=== PATIENT | male | born 1955 | race American Indian/Alaskan Native ===

== ENCOUNTER 2019-03-09 02:59 | Emergency (ER) | payer SELFPAY ==
[2019-03-09 03:08] VITALS: BP 130/86
--- NOTE | 2019-03-09 04:27 | Emergency Department Report ---
ED Headache HPI - General Chief Complaint: High BP Stated Complaint: LEFT SIDE HEADACHE AND LEFT EYE Time Seen by Provider: 03/09/19 04:22 Source: patient - History of Present Illness Initial Comments: This is a 63-year-old male. This patient has a history of hypertension and is currently on losartan 50 mg daily and potassium 10 mEq daily. Patient comes in complaining of a headache that he's had all day. Patient denies any nausea vomiting. Patient reportedly blurred vision in the left eye this morning but that has resolved. Patient denies any URI symptoms. Patient is followed by Dr. Karri Foy at [place]. His last took something for pain approximately 11:30 Monday night. Patient currently has no headache at this time. Timing/Duration: 24 hours Quality: mild Head Injury Location: frontal (time left eye) Recent Head Trauma: no recent headache/trauma Modifying Factors: worse with: cold therapy, exposure to light, immobilization, medication, movement, rest, other Associated Symptoms: denies: denies symptoms, confusion, fatigue, facial pain, fever/chills, flushing, loss of consciousness, nausea/vomiting, nasal congestion, nasal drainage, numbness in legs/feet, rash, seizures, sinus infection, stiff neck, vision changes, weakness, other Allergies/Adverse Reactions: Allergies No Known Allergies Allergy (Unverified 03/09/19 03:05) Home Medications: Ambulatory Orders Ibuprofen [Motrin 800 MG tab] 800 mg PO Q8HR PRN #30 tablet 03/09/19 ED Review of Systems ROS: Stated complaint: LEFT SIDE HEADACHE AND LEFT EYE Other details as noted in HPI Comment: All other systems reviewed and negative Constitutional: denies: chills, fever Eyes: denies: eye pain, eye discharge, vision change ENT: denies: ear pain, throat pain Respiratory: denies: cough, shortness of breath, wheezing Cardiovascular: denies: chest pain, palpitations Endocrine: no symptoms reported Gastrointestinal: denies: abdominal pain, nausea, diarrhea Genitourinary: denies: urgency, dysuria Musculoskeletal: denies: back pain, joint swelling, arthralgia Skin: denies: rash, lesions Neurological: headache (headache at this time). denies: weakness, paresthesias Psychiatric: denies: anxiety, depression Hematological/Lymphatic: denies: easy bleeding, easy bruising ED Past Medical Hx - Past Medical History Previous Medical History?: Yes Hx Hypertension: Yes - Surgical History Past Surgical History?: No - Social History Smoking Status: Never Smoker Substance Use Type: None - Medications Home Medications: Home Medications Medication Instructions Recorded Confirmed Last Taken Type Ibuprofen [Motrin 800 MG tab] 800 mg PO Q8HR PRN #30 tablet 03/09/19 Unknown Rx ED Physical Exam - General Limitations: No Limitations General appearance: alert, in no apparent distress - Head Head exam: Present: atraumatic, normocephalic - Eye Eye exam: Present: normal appearance, PERRL, EOMI - ENT ENT exam: Present: mucous membranes moist - Neck Neck exam: Present: full ROM - Expanded Neurological Exam Expanded Patient oriented to: Present: person, place, time Cranial nerves: EOM's Intact: Normal, Gag Reflex: Normal, Tongue Deviation: Normal, Nystagmus: Normal, Facial Sensation: Normal, Facial Palsy with Forehead Movement: Normal, Facial Palsy without Forehead Movement: Normal Cerebellar function: Finger to Nose: Normal, Heel to Manuel: Normal, Romberg: Normal Upper motor neuron: Adal Neglect: Normal, Pronator Drift: Normal, Babinski Sign: Normal, Sensory Extinction: Normal Sensory exam: Upper Extremity Light Touch: Normal, Upper Extremity Pin Prick: Normal, Upper Extremity Temperature: Normal, UE 2 Point Discrimination: Normal, Lower Extremity Light Touch: Normal, Lower Extremity Pin Prick: Normal, Lower Extremity Temperature: Normal, LE 2 Point Discrimination: Normal Motor strength exam: RUE: 4, LUE: 4, RLE: 4, LLE: 4 Best Eye Response ([place]): (4) open spontaneously Best Motor Response ([place]): (6) obeys commands Best Verbal Response ([place]): (5) oriented [place] Total: 15 - Psychiatric Psychiatric exam: Present: normal affect, normal mood - Skin Skin exam: Present: warm, dry, intact, normal color. Absent: rash ED Course Vital Signs 03/09/19 03:04 Temperature 97.6 F Pulse Rate 61 Respiratory 20 Rate Blood Pressure 130/86 O2 Sat by Pulse 99 Oximetry ED Medical Decision Making - Medical Decision Making This is a 63-year-old male. This patient has a history of hypertension and is currently on losartan 50 mg daily and potassium 10 mEq daily. Patient comes in complaining of a headache that he's had all day. Patient denies any nausea vomiting. Patient reportedly blurred vision in the left eye this morning but that has resolved. Patient denies any URI symptoms. Patient is followed by Dr. Karri Foy at [place]. His last took something for pain approximately 11:30 Monday night. Patient currently has no headache at this time. Patient currently has no headache at this time. Patient has a normal neurological exam with no deficits or weakness on exam. Blood pressure is stable at 130/86. Patient will be discharged in stable condition to follow up with his primary care provider in the next 24-48 hours. Critical care attestation.: If time is entered above; I have spent that time in minutes in the direct care of this critically ill patient, excluding procedure time. ED Disposition Clinical Impression: Headache around the eyes Disposition: - TO HOME OR SELFCARE Is pt being admited?: No Does the pt Need Aspirin: No Condition: Stable Instructions: Acute Headache (ED) Additional Instructions: Please take ibuprofen as needed for pain. Her neurological exam is stable for any acute abnormalities. I recommended for you to follow up with your primary care provider in the next 24-48 hours. He is return back to the emergency room if any acute changes or worsening of her headache nausea vomiting or weaknesses. Prescriptions: Ibuprofen [Motrin 800 MG tab] 800 mg PO Q8HR PRN #30 tablet PRN Reason: Pain , Severe (7-10) Referrals: [facility] [Provider Group] - 3-5 Days Forms: Work/School Release Form(ED)
== END 2019-03-09 04:35 | disposition home or self-care (01) ==
LOC: ED 02:59
DX: R51 Headache (principal); H57.12 Ocular pain, left eye; H53.8 Other visual disturbances; I10 Essential (primary) hypertension
CPT/HCPCS: 99282